=== PATIENT | female | born 1980 | race Caucasian/White ===

== ENCOUNTER 2019-08-22 13:35 | Outpatient (CLI) | payer OTHER ==
--- NOTE | 2019-08-22 14:51 | MMO ---
Bilateral MAMMO Bilat Diag [facility]. CLINICAL HISTORY: Patient is 39 years old and is seen for diagnostic exam and lump or thickening in the right breast. The patient has the following family history of breast cancer: great grandmother, UTERINE. VIEWS: The views performed were: bilateral craniocaudal with tomosynthesis; bilateral mediolateral oblique with tomosynthesis; and bilateral mediolateral with tomosynthesis. FILMS COMPARED: The present examination has been compared to a prior imaging study performed at [facility] on 08/22/2019. This study has been interpreted with the assistance of computer-aided detection. MAMMOGRAM FINDINGS: The breasts are extremely dense, which may lower the sensitivity of mammography. There is a lobular mass measuring 9 millimeters seen in the right breast at 10 o'clock located 10 centimeters from the nipple. In the left breast, there are no suspicious masses, calcifications or areas of architectural distortion. IMPRESSION: MASS IN THE RIGHT BREAST IS PROBABLY BENIGN. FOLLOW-UP IN 6 MONTHS IS RECOMMENDED. THE RESULTS OF THIS EXAM WERE SENT TO THE PATIENT. ACR BI-RADS Category 3 - Probably benign finding - short interval follow-up suggested. [facility] will notify the patient of the need for additional imaging services. MAMMOGRAPHY NOTE: 1. A negative mammogram report should not delay a biopsy if a dominant of clinically suspicious mass is present. 2. Approximately 10% to 15% of breast cancers are not detected by mammography. 3. Adenosis and dense breasts may obscure an underlying neoplasm. Reported by: Stefania DEE Electonically Signed: [id number]
--- NOTE | 2019-08-22 14:56 | ULT ---
ULTRASOUND RIGHT BREAST: HISTORY: Fullness of the right breast. Abnormal palpable abnormality by the physician. COMPARISON: Mammogram of the same day. FINDINGS: In the right breast there is actually tail breast tissue. There is also a hypoechoic lobular mass-li ke area which is wider than tall measuring a 1 cm in transverse x 5 mm in AP dimension with posterior acoustic enhancement. There is a cyst in the breast at 10 o'clock 10 cm from the nipple. IMPRESSION: BIRADS category 3: probably benign. This area in the right breast 10 o'clock 10 cm from the nipple may reflect a focal area of ductal ectasia with internal debris versus a complex cluster of cysts. L ess fibroadenoma or mass. A 6-month followup ultrasound and mammogram is recommended. POS: MEG
== END 2019-08-22 13:36 | disposition home or self-care (01) ==
LOC: BICMAMMO 13:35
PROVIDERS: ATTEND Obstetrics & Gynecology
DX: N63.11 Unspecified lump in the right breast, upper outer quadrant (principal)
CPT/HCPCS: 77066; G0279

== ENCOUNTER 2020-08-21 09:24 | Outpatient (CLI) | payer OTHER | END 2020-08-21 09:25 | disposition home or self-care (01) | LOC: BICMAMMO 09:24 | PROVIDERS: ATTEND Obstetrics & Gynecology | DX: N63.10 Unspecified lump in the right breast, unspecified quadrant (principal); R92.2 Inconclusive mammogram; Z80.3 Family history of malignant neoplasm of breast | CPT/HCPCS: 77066; G0279 ==